=== PATIENT | male | born 1965 | race Caucasian/White ===

== ENCOUNTER 2017-07-29 11:50 | Inpatient (IN) | payer OTHER ==
[~2017-07-29] VITALS: Ht 182.8 cm; Wt 67.6 kg
[~2017-07-29 11:50] MED LIST: AMOXICILLIN,AM250 MG PO; AMOXICILLIN500 MG PO; CLEOCIN HCL150 MG PO; CLEOCIN HCL300 MG PO; CLINDAMYCIN HC300 MG PO; CLINDAMYCIN150 MG PO; CORDROL20 MG PO; CYCLOBENZAPRINE10 MG PO; DARVOCET N 1001 TAB PO; DAYPRO600 M1 PO; EFFEXOR XR150 M1 PO; EFFEXOR XR150 MG PO; FIORICET 325 MG1 TAB PO; FLEXERIL10 MG PO; FLEXERIL5 MG PO; Fioricet 325 MG1 TAB PO; HYDROCODONE BIT1 T11 PO; MIDRIN (DURADR1 CAP PO; MIDRIN 325 MG-11 CA1 PO; NORCO 325 MG-51 TAB PO; PEN-VK500 MG PO; PENICILLIN VK500 MG PO; PERCOCET 325 MG1 TA7 PO; PHENERGAN25 M1 PO; PREDNICOT10 MG PO; Phenergan25 MG PO; TRAMADOL HCL50 MG PO; ULTRAM50 MG PO; VICODIN 5/500 505 MG PO; VICODIN 500 MG-1 TAB PO; VICODIN ES 7501 TAB PO; Xylocaine 2% Jel5 ML T
[2017-07-29 12:02] VITALS: BP 127/94
[2017-07-29 12:11] LABS: BASO # 0.1 10*3/uL (0.0-0.1); EOS # 0.1 10*3/uL (0.0-0.4); EOS % 2.6 % (1.0-4.0); HEMATOCRIT 38.8 % (42.0-52.0); HEMOGLOBIN 13.3 g/dl (14.0-18.0); LYMPH # 2.6 10*3/uL (1.3-4.4); LYMPH % 48.3 % (27.0-41.0); MEAN CELL VOLUME 102.6 fl (80.0-94.0); MEAN CORPUSCULAR HGB 35.2 pg (27.0-31.0); MEAN CORPUSCULAR HGB CONC 34.3 g/dl (33.0-37.0); MEAN PLATELET VOLUME 8.9 fl (9.6-12.3); MONO # 0.4 10*3/uL (0.1-1.0); MONO % 7.4 % (3.0-9.0); NEUT # 2.1 10*3/uL (2.3-7.9); NEUT % 39.5 % (47.0-73.0); PLATELET COUNT AUTOMATED 227 10*3/uL (130-400); RED BLOOD COUNT 3.78 10*6/uL (4.50-5.90); RED CELL DISTRI WIDTH 12.6 % (0-14.5); WHITE BLOOD COUNT 5.4 10*3/uL (4.8-10.8)
[2017-07-29 12:20] LABS: ACT PARTIAL THROMBO TIME 24.2 SECONDS (20.8-31.5)
[2017-07-29 12:27] LABS: ALBUMIN 3.3 gm/dl (3.1-4.5); ALKALINE PHOSPHATASE 149 U/L (45-117); BUN 12 mg/dl (7-24); CHLORIDE 105 mmol/L (98-107); CREATININE 0.67 mg/dL (0.70-1.30); MAGNESIUM 2.1 mg/dL (1.5-2.1); POTASSIUM 3.8 mmol/L (3.5-5.1); SGOT/AST 175 IU/L (3-35); SGPT/ALT 71 U/L (12-78); SODIUM 137 mmol/L (136-145); TOTAL PROTEIN 6.9 gm/dL (6.4-8.2)
[2017-07-29 12:28] LABS: TROPONIN I < 0.015 ng/ml (<0.045)
[2017-07-29 12:55] VITALS: BP 132/88; BP 150/82
[2017-07-29 13:30] VITALS: BP 128/74
--- NOTE | 2017-07-29 14:04 | NUR ---
A 51, admitted to 5E, under the services of TOMER Hinson DO with a diagnosis of CHEST PAIN, HYPOCALCEMIA, HYPERGLYCEMIA. Chief complaint is CHEST PAIN. Patient arrived via ambulatory from ER. Monitor applied. Initial assessment completed. Vital signs taken and recorded. TOMER HINSON DO notified of admission to the unit. Orders received. See assessment for past medical history, medications and allergies. Patient and/or family oriented to unit. [facility] visitation policy reviewed. Clothing/patient valuable form completed. STACIE KNOWLES
[2017-07-29 14:40] VITALS: BP 131/79
[2017-07-29 16:00] VITALS: BP 146/89
[2017-07-29 20:00] VITALS: BP 133/80
--- NOTE | 2017-07-29 20:00 | NUR ---
RESTING IN BED. STATES THAT HE IS FEELING BETTER. STATES THAT HIS PAIN ON THE LEFT SIDE OF HIS CHEST & SHOULDER IS ACHY & RATES IT A 2/10. HEP LOCK INTACT TO RIGHT FOREARM. CALL LIGHT WITHIN REACH. NO DISTRESS NOTED.
--- NOTE | 2017-07-29 22:34 | NUR ---
MEDICATED WITH RESTORIL FOR C/O INSOMNIA.
[2017-07-30] VITALS: BP 141/79
--- NOTE | 2017-07-30 | NUR ---
SLEEPING, AWAKENS EASILY. NO DISTRESS NOTED. RESPIRATIONS EASY. VSS. LUNGS DIMINISHED WITH WHEEZES. PULSE OX 95% RA. DENIES CHEST PAIN. CALL LIGHT WITHIN REACH. NO VOICED COMPLAINTS
--- NOTE | 2017-07-30 06:00 | NUR ---
SLEPT THROUGHOUT NIGHT WITH NO DISTRESS NOTED. RESPIRATIONS EASY. NO C/O CHEST PAIN. CALL LIGHT WITHIN REACH. NO VOICED COMPLAINTS THIS SHIFT
[2017-07-30 07:20] LABS: BASO # 0.1 10*3/uL (0.0-0.1); BASO % 1.6 % (0.0-1.0); EOS # 0.1 10*3/uL (0.0-0.4); EOS % 1.8 % (1.0-4.0); HEMATOCRIT 37.2 % (42.0-52.0); HEMOGLOBIN 12.8 g/dl (14.0-18.0); LYMPH # 1.6 10*3/uL (1.3-4.4); LYMPH % 36.7 % (27.0-41.0); MEAN CELL VOLUME 102.8 fl (80.0-94.0); MEAN CORPUSCULAR HGB 35.4 pg (27.0-31.0); MEAN CORPUSCULAR HGB CONC 34.4 g/dl (33.0-37.0); MEAN PLATELET VOLUME 9.5 fl (9.6-12.3); MONO # 0.4 10*3/uL (0.1-1.0); MONO % 9.2 % (3.0-9.0); NEUT # 2.2 10*3/uL (2.3-7.9); NEUT % 50.5 % (47.0-73.0); PLATELET COUNT AUTOMATED 209 10*3/uL (130-400); RED BLOOD COUNT 3.62 10*6/uL (4.50-5.90); RED CELL DISTRI WIDTH 12.7 % (0-14.5); WHITE BLOOD COUNT 4.4 10*3/uL (4.8-10.8)
[2017-07-30 07:35] LABS: ACT PARTIAL THROMBO TIME 23.9 SECONDS (20.8-31.5); INTERNATIONAL NORM RATIO 0.9 (2.0-3.5)
[2017-07-30 07:36] LABS: CHLORIDE 106 mmol/L (98-107); POTASSIUM 3.3 mmol/L (3.5-5.1); SODIUM 139 mmol/L (136-145)
[2017-07-30 07:46] LABS: ALKALINE PHOSPHATASE 141 U/L (45-117); BUN 14 mg/dl (7-24); CHOLESTEROL 162 mg/dL (<200); CREATININE 0.66 mg/dL (0.70-1.30); FREE T4 0.64 ng/dl (0.76-1.46); HDL CHOLESTEROL 81 mg/dl (40-60); LDL CHOLESTEROL 55 mg/dL (9-159); MAGNESIUM 2.1 mg/dL (1.5-2.1); PHOSPHOROUS 3.3 mg/dL (2.5-4.9); SGOT/AST 123 IU/L (3-35); SGPT/ALT 56 U/L (12-78); TOTAL PROTEIN 6.2 gm/dL (6.4-8.2); TRIGLYCERIDES 129 mg/dl (<150); VLDL CHOLESTEROL 26 mg/dL (6-40)
[2017-07-30 07:55] LABS: VITAMIN D, 25-HYDROXY 44.7 ng/mL (30-100)
[2017-07-30 08:00] VITALS: BP 139/86
--- NOTE | 2017-07-30 08:32 | NUR ---
PT RESTING QUIETLY IN BED. DENIES ANY PAIN/DISCOMFORT AT THIS TIME. RESPIRATIONS EASY, REGULAR AT REST. POX 98% RA. VSS. WILL CONTINUE TO MONITOR. CALL LIGHT WITHIN REACH.
--- NOTE | 2017-07-30 09:27 | NUR ---
PATIENT ATTEMPTED TO LEAVE THE HOSPITAL ON HIS OWN. PATIENT WAS ESCORTED BACK INTO HIS ROOM BY THE CLINICAL SERVICES DIRECTOR. NOTIFIED AT THIS TIME. WILL CONTINUE TO MONITOR.
[2017-07-30 12:00] VITALS: BP 147/79
[2017-07-30] MEDS ORDERED: Ventolin INH (12:31)
[2017-07-30] MEDS ORDERED: PREDNISONE10 MG PO (12:31)
--- NOTE | 2017-07-30 13:01 | NUR ---
Discharge instructions reviewed with patient/family. Patient receptive and verbalizes understanding. Follow-up care arranged. Written instructions given to patient/family. SALAZAR PAIZ.
[2017-07-31 15:05] LABS: HEPATITIS B SURFACE AG Negative (Negative); HEPATITIS C VIRUS ANTIBODY 0.2 s/co (0.0-0.9)
== END 2017-07-30 13:00 | disposition home or self-care (01) | DRG 192 ==
LOC: ED 11:50 → EDHOLD 13:31 → 5E 13:39
PROVIDERS: Family Medicine; Nurse Practitioner Family; ADMIT Emergency Medicine
DX: J44.1 Chronic obstructive pulmonary disease with (acute) exacerbation (principal); E83.51 Hypocalcemia; R07.9 Chest pain, unspecified; R73.9 Hyperglycemia, unspecified; F17.210 Nicotine dependence, cigarettes, uncomplicated; R74.0 Nonspecific elevation of levels of transaminase and lactic acid dehydrogenase [LDH]; D53.9 Nutritional anemia, unspecified; Z71.6 Tobacco abuse counseling; Z88.6 Allergy status to analgesic agent; Z79.899 Other long term (current) drug therapy; Z80.1 Family history of malignant neoplasm of trachea, bronchus and lung

== ENCOUNTER 2017-09-01 16:44 | Emergency (ER) | payer OTHER ==
[~2017-09-01] VITALS: Ht 182.8 cm; Wt 68.0 kg
[~2017-09-01 16:44] MED LIST changes: +PREDNISONE10 MG PO; +Ventolin INH
[2017-09-01] MEDS ORDERED: AUGMENTIN 500500 M1 PO (17:40)
== END 2017-09-01 21:19 | disposition home or self-care (01) ==
LOC: ED 16:44
DX: S61.217A Laceration without foreign body of left little finger without damage to nail, initial encounter (principal); S60.222A Contusion of left hand, initial encounter; S60.221A Contusion of right hand, initial encounter; R03.0 Elevated blood-pressure reading, without diagnosis of hypertension; F17.200 Nicotine dependence, unspecified, uncomplicated; Z88.6 Allergy status to analgesic agent; W55.12XA Struck by horse, initial encounter; Y93.89 Activity, other specified; Y92.9 Unspecified place or not applicable; Y99.9 Unspecified external cause status